=== PATIENT | male | born 1940 | race Caucasian/White ===

== ENCOUNTER 2019-02-22 06:16 | Day surgery (SDC) | payer MEDICARE ==
[2019-02-18 12:46] VITALS: BP 145/74
[2019-02-18 13:07] LABS: BASOPHILS % (AUTO) 0.5 % (0.0-5.0); EOSINOPHILS % (AUTO) 4.1 % (0.0-8.0); HEMATOCRIT 38.1 % (42-54); LYMPHOCYTES % (AUTO) 18.4 % (21.0-51.0); MEAN CORPUSCULAR HEMOGLOBIN 33.3 pg (27.0-33.0); MEAN CORPUSCULAR HGB CONC 33.5 g/dL (32.0-36.0); MEAN CORPUSCULAR VOLUME 99.3 fL (79-99); PLATELET COUNT (AUTO) 165 K/uL (130-400); RED BLOOD CELL COUNT(AUTO) 3.84 MIL/uL (4.50-6.20); RED CELL DISTRIBUTION WIDTH 14.5 % (11.0-15.5); WHITE BLOOD COUNT (AUTO) 4.2 K/uL (4.8-10.8)
[2019-02-18 13:08] LABS: APPEARANCE,URINE Clear (CLEAR); BILIRUBIN,URINE Negative (NEGATIVE); COLOR,URINE Yellow (YELLOW); GLUCOSE, URINE (UA) Negative (NEGATIVE); KETONES,URINE Negative (NEGATIVE); LEUKOCYTE ESTERASE ,URINE Negative (NEGATIVE); NITRATE,URINE Negative (NEGATIVE); OCCULT BLOOD,URINE Negative (NEGATIVE); PROTEIN,URINE Negative (NEGATIVE); UROBILINOGEN,URINE 0.2 mg/dL (0.2-1.0)
[2019-02-18 13:15] LABS: CREATININE 1.5 mg/dL (0.5-1.5); POTASSIUM 4.2 mmol/L (3.5-5.1)
[2019-02-18 13:16] LABS: INR 1.02 (0.85-1.15); PARTIAL THROMBOPLASTIN TIME 26.7 SEC (26.3-35.5); PROTHROMBIN TIME 10.7 SEC (9.6-11.6)
--- NOTE | 2019-02-19 16:27 | NUR ---
LABS BUN/CREA REPORTED TO ALCIRA SOLIS, NO FURTHER ORDERS GIVEN
[2019-02-22] VITALS (23 sets, daily range): BP systolic 116–147; BP diastolic 54–88
[~2019-02-22] VITALS: Ht 172.7 cm; Wt 119.1 kg
[~2019-02-22 06:16] MED LIST: ALLO100T PO; ASPI-555 PO; BUDE10.2 IH; CHOL200016 PO; ESOM40CA PO; FLUT15.845 NS; FLUT16H NASAL; FURO40TA5 PO; GABA-531 PO; HYDR-4154 PO; HYDR100T27 PO; ISOS30TA6 PO; MONT10TA24 PO; POTA10TA11 PO; RANO10003 PO; SLOW MAG PO; TAMS-1 PO; ZOLP5TAB2 PO
[2019-02-22] MEDS ORDERED: SODIUM CHLORIDE 0.9% 1000ML 1,000 ML IV ONE (07:31)
[2019-02-22] MEDS ORDERED: IODIXANOL 320 MG/ML 100 ML VIAL ONE ×2 (07:44→07:45)
[2019-02-22] MEDS ORDERED: LIDOCAINE HCL 2% 20ML ONE (07:44)
[2019-02-22] MEDS ORDERED: NITROGLYCERIN 5 MG/ML 10 ML VIAL IV ONE (07:44)
[2019-02-22] MEDS ORDERED: HEPARIN SODIUM 1000UNIT/ML 10ML VIAL ONE (07:44)
[2019-02-22] MEDS ORDERED: IOHEXOL 350 MG/ML 100ML INFUS..BTL IV ONE (07:50)
[2019-02-22] MEDS ORDERED: IOHEXOL-350 50ML VIAL IV ONE (07:50)
[2019-02-22] MEDS ORDERED: SODIUM CHLORIDE 0.9% 1000ML 1,000 ML IV SCH (09:09)
[2019-02-22] MEDS ORDERED: DEXTROSE 50%-WATER 50 ML DISP.SYRIN IV PRN (09:15)
[2019-02-22] MEDS ORDERED: HYDRALAZINE HCL 20 MG/ML VIAL IV PRN (09:15)
[2019-02-22] MEDS ORDERED: GLUCAGON 1MG KIT 1 MG ML IM PRN (09:15)
[2019-02-22] MEDS ORDERED: ATROPINE SULFATE 0.1 MG/ML 10 ML SYG IVP ONE (09:25)
--- NOTE | 2019-02-22 09:25 | NUR ---
PT. RECEIVED FROM ORTHODONTIC TECHNICIAN ASSISTANT BY [facility]. PT HAS 6 FR SHEATH TO THE RT. ARTERIAL AND 7 FR TO RT VEINOUS WITH LINES STILL CONNECTED. RT. AND LT. DORSALIS PEDAL ARE PRESENT AND DRESSING DRY AND INTACT.
--- NOTE | 2019-02-22 09:45 | NUR ---
PT. 6 FR ARTERIAL LINE WAS PULLED FROM RT GROIN, AT 0945 AM HELD PRESSURE
--- NOTE | 2019-02-22 10:15 | NUR ---
PRESSURE HELD FOR 30 MIN APPLIED D-STAT, RT. GROIN SITE IS DRY AND INTACT, PEDAL PULSE BILATERAL ARE INTACT
--- NOTE | 2019-02-22 15:13 | NUR ---
PT LEFT VIA WHEELCHAIR IN PVT CAR WITH SPOUSE. D/C INSTRUCTIONS GIVEN TO PT. AND . F/U APPT SCHEDULED. PT RT. GROIN DRESSING INTACT AND DRY, NO HEMATOMA NO BLEEDING, NO PAIN AND DP PRESENT IN BOTH LOWER/EXT.
== END 2019-02-22 15:13 ==
LOC: DAH 06:16
PROVIDERS: ATTEND Internal Medicine Cardiovascular Disease
DX: I25.118 Atherosclerotic heart disease of native coronary artery with other forms of angina pectoris (principal); I11.0 Hypertensive heart disease with heart failure; I50.32 Chronic diastolic (congestive) heart failure; J44.9 Chronic obstructive pulmonary disease, unspecified; G47.33 Obstructive sleep apnea (adult) (pediatric); E66.01 Morbid (severe) obesity due to excess calories; Z68.39 Body mass index [BMI] 39.0-39.9, adult; Z88.8 Allergy status to other drugs, medicaments and biological substances; Z88.1 Allergy status to other antibiotic agents; Z98.890 Other specified postprocedural states; Z79.01 Long term (current) use of anticoagulants; Z79.899 Other long term (current) drug therapy; Z79.82 Long term (current) use of aspirin; Z87.891 Personal history of nicotine dependence; Z72.89 Other problems related to lifestyle; Z83.3 Family history of diabetes mellitus; Z82.3 Family history of stroke
CPT/HCPCS: 36415; 71045; 80048; 81003; 85025; 85610; 85730; 93005; 93460; A4215; A4216; A4221; A4222; A4223 ×3; A4606; A4657; A6206; A6402; C1769; C1894 ×4; J1644; J3490 ×2; J7030; Q9965; Q9967 ×3; J0461

== ENCOUNTER 2022-07-31 05:35 | Day surgery (SDC) | payer MEDICARE ==
[2022-07-29 11:25] LABS: BASOPHILS % (AUTO) 0.5 % (0.0-5.0); HEMATOCRIT 35.3 % (42-54); MEAN CORPUSCULAR HEMOGLOBIN 32.7 pg (27.0-33.0); MEAN CORPUSCULAR HGB CONC 31.2 g/dL (32.0-36.0); MEAN CORPUSCULAR VOLUME 105.1 fL (79-99); MONOCYTES % (AUTO) 8.4 % (3.0-13.0); NEUTROPHILS % (AUTO) 74.6 % (40.0-77.0); PLATELET COUNT (AUTO) 122 K/uL (130-400); RED BLOOD CELL COUNT(AUTO) 3.36 MIL/uL (4.50-6.20); RED CELL DISTRIBUTION WIDTH 14.6 % (11.0-15.5); WHITE BLOOD COUNT (AUTO) 4.1 K/uL (4.8-10.8)
[2022-07-29 11:33] LABS: CREATININE 1.4 mg/dL (0.5-1.5); POTASSIUM 4.3 mmol/L (3.5-5.1)
[2022-07-29 12:05] VITALS: BP 156/71
[2022-07-31] VITALS (16 sets, daily range): BP systolic 136–159; BP diastolic 70–97
[~2022-07-31] VITALS: Ht 172.7 cm; Wt 117.2 kg
[~2022-07-31 05:35] MED LIST changes: -ASPI-555 PO; +ATOR10TA69 PO; -FLUT16H NASAL; +GABA300C PO; -HYDR-4154 PO; -ISOS30TA6 PO; +METO25TA6 PO; +MONT-39 PO; -MONT10TA24 PO; +POTA-183 PO; -POTA10TA11 PO; -RANO10003 PO; -SLOW MAG PO
[2022-07-31 06:25] LABS: BASOPHILS % (AUTO) 0.5 % (0.0-5.0); EOSINOPHILS % (AUTO) 2.7 % (0.0-8.0); HEMATOCRIT 35.5 % (42-54); LYMPHOCYTES % (AUTO) 15.9 % (21.0-51.0); MEAN CORPUSCULAR HEMOGLOBIN 32.4 pg (27.0-33.0); MEAN CORPUSCULAR VOLUME 104.7 fL (79-99); MONOCYTES % (AUTO) 9.4 % (3.0-13.0); NEUTROPHILS % (AUTO) 70.8 % (40.0-77.0); PLATELET COUNT (AUTO) 122 K/uL (130-400); RED BLOOD CELL COUNT(AUTO) 3.39 MIL/uL (4.50-6.20); RED CELL DISTRIBUTION WIDTH 14.3 % (11.0-15.5)
[2022-07-31] MEDS ORDERED: LACTATED RINGERS 1000ML 1,000 ML IV ONE (06:29)
[2022-07-31] MEDS ORDERED: CEFAZOLIN SODIUM 1 GM VIAL ONE (06:55)
[2022-07-31] MEDS ORDERED: THROMBIN-JMI 5000 UNIT/VIAL TP ONE (06:55)
[2022-07-31] MEDS: CEFAZOLIN SODIUM 2 GM VIAL ONE ×2 (06:59→08:00)
[2022-07-31] MEDS ORDERED: PROPOFOL 10 MG/ML 20ML VIAL IV ONE ×2 (07:10→08:00)
[2022-07-31] MEDS ORDERED: MIDAZOLAM HCL 1 MG/ML 2ML VIAL ONE (07:10)
[2022-07-31] MEDS ORDERED: FENTANYL CITRATE PF 50 MCG/1 ML 2ML VIAL ONE ×2 (07:10→07:28)
[2022-07-31] MEDS ORDERED: SUCCINYLCHOLINE CHLORIDE 20 MG/ML 10 ML VIAL ONE (07:28)
[2022-07-31] MEDS ORDERED: ROCURONIUM 10MG/1ML SYR 10 MG/ML ML ONE (07:28)
[2022-07-31] MEDS ORDERED: BUPIVACAINE/EPI/PF 0.25% 30ML VIAL IJ SCH (07:30)
[2022-07-31] MEDS ORDERED: PHENYLEPHRINE HCL 10 MG/ML 1ML VIAL IV ONE (08:28)
[2022-07-31] MEDS ORDERED: GLYCOPYRROLATE 1 MG/5 ML SYRINGE ONE (10:02)
[2022-07-31] MEDS ORDERED: NEOSTIGMINE 5MG/5ML SYR IV ONE (10:02)
[2022-07-31] MEDS ORDERED: ONDANSETRON 4MG INJ ONE (10:03)
== END 2022-07-31 11:45 | disposition home or self-care (01) ==
LOC: DAH 05:35 → EDSTATUS 10:30 → DAH 11:45
PROVIDERS: ATTEND Neurological Surgery
DX: G56.02 Carpal tunnel syndrome, left upper limb (principal); G56.22 Lesion of ulnar nerve, left upper limb; Z20.822 Contact with and (suspected) exposure to COVID-19; J44.9 Chronic obstructive pulmonary disease, unspecified; I10 Essential (primary) hypertension; E66.01 Morbid (severe) obesity due to excess calories; M10.9 Gout, unspecified; G47.00 Insomnia, unspecified; N40.0 Benign prostatic hyperplasia without lower urinary tract symptoms; Z98.890 Other specified postprocedural states; Z68.37 Body mass index [BMI] 37.0-37.9, adult
CPT/HCPCS: 80048; 85025 ×2; 87426; 36415 ×2; 71045; 64718; 64721; A6260; A4663; C1713; A4649 ×2; J7120; J3010 ×2; J0690 ×2; J3490 ×2; J2710; J0330; J2250; J2704 ×2; J2405; J2370; A4215 ×2; A4223; A4222; A4221

== ENCOUNTER 2022-09-04 05:46 | Day surgery (SDC) | payer MEDICARE ==
[2022-09-03 09:29] LABS: BASOPHILS % (AUTO) 0.5 % (0.0-5.0); EOSINOPHILS % (AUTO) 2.3 % (0.0-8.0); HEMATOCRIT 35.1 % (42-54); LYMPHOCYTES % (AUTO) 16.4 % (21.0-51.0); MEAN CORPUSCULAR HEMOGLOBIN 32.6 pg (27.0-33.0); MEAN CORPUSCULAR HGB CONC 31.9 g/dL (32.0-36.0); MONOCYTES % (AUTO) 9.6 % (3.0-13.0); NEUTROPHILS % (AUTO) 70.9 % (40.0-77.0); PLATELET COUNT (AUTO) 107 K/uL (130-400); RED BLOOD CELL COUNT(AUTO) 3.44 MIL/uL (4.50-6.20); RED CELL DISTRIBUTION WIDTH 14.5 % (11.0-15.5)
[2022-09-03 09:34] LABS: POTASSIUM 4.3 mmol/L (3.5-5.1)
[2022-09-03 09:36] VITALS: BP 151/74
[~2022-09-04] VITALS: Ht 170.2 cm; Wt 114.6 kg
[2022-09-04] VITALS (19 sets, daily range): BP systolic 154–179; BP diastolic 66–95
[~2022-09-04 05:46] MED LIST changes: -CHOL200016 PO; +CHOL500045 PO; -POTA-183 PO; +POTA-364 PO
[2022-09-04] MEDS ORDERED: LACTATED RINGERS 1000ML 1,000 ML IV ONE (06:26)
[2022-09-04 06:36] LABS: BASOPHILS % (AUTO) 0.9 % (0.0-5.0); EOSINOPHILS % (AUTO) 2.7 % (0.0-8.0); HEMATOCRIT 34.5 % (42-54); LYMPHOCYTES % (AUTO) 17.3 % (21.0-51.0); MEAN CORPUSCULAR HEMOGLOBIN 32.7 pg (27.0-33.0); MEAN CORPUSCULAR HGB CONC 32.5 g/dL (32.0-36.0); MEAN CORPUSCULAR VOLUME 100.6 fL (79-99); MONOCYTES % (AUTO) 10.4 % (3.0-13.0); NEUTROPHILS % (AUTO) 68.4 % (40.0-77.0); PLATELET COUNT (AUTO) 110 K/uL (130-400); RED BLOOD CELL COUNT(AUTO) 3.43 MIL/uL (4.50-6.20); RED CELL DISTRIBUTION WIDTH 14.6 % (11.0-15.5); WHITE BLOOD COUNT (AUTO) 3.4 K/uL (4.8-10.8)
[2022-09-04] MEDS ORDERED: LIDOCAINE HCL-MPF 0.5% 50ML VIAL IJ ONE (06:58)
[2022-09-04] MEDS ORDERED: LIDOCAINE PF 100MG/5ML (2%) SYRINGE 5ML ONE (06:59)
[2022-09-04] MEDS ORDERED: SUCCINYLCHOLINE CHLORIDE 20 MG/ML 10 ML VIAL ONE (06:59)
[2022-09-04] MEDS ORDERED: FENTANYL CITRATE PF 50 MCG/1 ML 2ML VIAL ONE (07:00)
[2022-09-04] MEDS ORDERED: NEOSTIGMINE 5MG/5ML SYR IV ONE (07:00)
[2022-09-04] MEDS ORDERED: PROPOFOL 10 MG/ML 20ML VIAL IV ONE (07:00)
[2022-09-04] MEDS ORDERED: GLYCOPYRROLATE 1 MG/5 ML SYRINGE ONE (07:00)
[2022-09-04] MEDS ORDERED: ONDANSETRON 4MG INJ ONE ×2 (07:00→09:57)
[2022-09-04] MEDS ORDERED: DEXAMETHASONE SOD PHOSPHATE 10MG/ML 1ML VIAL ONE (07:00)
[2022-09-04] MEDS ORDERED: ROCURONIUM 10MG/1ML SYR 10 MG/ML ML ONE (07:00)
[2022-09-04] MEDS ORDERED: MIDAZOLAM HCL 1 MG/ML 2ML VIAL ONE (07:13)
[2022-09-04] MEDS ORDERED: BUPIVACAINE/EPI/PF 0.25% 10ML VIAL IJ SCH (07:30)
[2022-09-04] MEDS: CEFAZOLIN SODIUM 2 GM VIAL ONE ×2 (07:30→08:25)
[2022-09-04] MEDS ORDERED: BUPIVACAINE/PF 0.25% 30ML VIAL IJ SCH (07:30)
[2022-09-04] MEDS ORDERED: ARTIFICIAL TEARS 3.5 GM OINTMENT ONE (07:50)
[2022-09-04] MEDS ORDERED: MEPERIDINE-PF 25 MG/ML SYG ONE ×2 (09:57→10:49)
[2022-09-04] MEDS ORDERED: HYDRALAZINE 20MG/ML VIAL ONE (10:45)
[2022-09-04] MEDS ORDERED: KETOROLAC 15MG/ML VIAL (15MG/ML) ONE (10:49)
== END 2022-09-04 11:49 | disposition home or self-care (01) ==
LOC: DAH 05:46
PROVIDERS: ATTEND Neurological Surgery
DX: G56.01 Carpal tunnel syndrome, right upper limb (principal); Z20.822 Contact with and (suspected) exposure to COVID-19; G56.21 Lesion of ulnar nerve, right upper limb; I11.0 Hypertensive heart disease with heart failure; I50.30 Unspecified diastolic (congestive) heart failure; J44.9 Chronic obstructive pulmonary disease, unspecified; I25.10 Atherosclerotic heart disease of native coronary artery without angina pectoris; I87.2 Venous insufficiency (chronic) (peripheral); E78.5 Hyperlipidemia, unspecified; G47.33 Obstructive sleep apnea (adult) (pediatric); E66.01 Morbid (severe) obesity due to excess calories; I48.0 Paroxysmal atrial fibrillation; Z68.37 Body mass index [BMI] 37.0-37.9, adult; Z87.891 Personal history of nicotine dependence
CPT/HCPCS: 80051; 85025 ×2; 87426; 36415 ×2; 93005; 64718; 24999; 64721; A6260; A4663; J7120; J3010; J3490 ×3; J1100; J2710; J0330; J2001; J0360; J2250; J2704; J2405 ×2; J2175 ×2; J1885; J0690; A4215; A4223; A4222; A4221